=== PATIENT | female | born 1990 | race Caucasian/White ===

== ENCOUNTER 2017-06-07 05:19 | Inpatient (IN) | payer BC ==
[2017-06-07] MEDS ORDERED: OLIVE OIL 118 ML BTL MISC PRN (05:59)
[2017-06-07] MEDS ORDERED: OXYTOCIN/RINGERS LACTATE 1,000 ML IV PRN (05:59)
[2017-06-07] MEDS ORDERED: EPSOM SALT 454 GM TP PRN (05:59)
[2017-06-07] MEDS ORDERED: AMPICILLIN SODIUM 2 GM in NS 100 ML IV ONE (05:59)
[2017-06-07] MEDS ORDERED: LR 1,000 ML IV PRN (05:59)
[2017-06-07] MEDS ORDERED: TERBUTALINE SULFATE 1 MG/ML VIAL IV PRN (05:59)
[2017-06-07 06:02] LABS: % IMMATURE GRANULYOCYTES 1.3 % (0.0-1.1); ABSOLUTE IMMATURE GRANULOCYTES 0.19 10^3/uL (0.00-0.10); ADD DIFF? NO; ADD MORPH? NO; ADD SCAN? NO; ATYPICAL LYMPHOCYTE FLAG 10 (0-99); FRAGMENT RBC FLAG 0 (0-99); HEMATOCRIT 36.1 % (38.0-47.0); HEMOGLOBIN 12.2 g/dL (12.6-16.3); LEFT SHIFT FLG 10 (0-99); LIPEMIA HEMOLYSIS FLAG 90 (0-99); MEAN CELL HEMOGLOBIN 28.9 pg (27.9-34.1); MEAN CELL HEMOGLOBIN CONCENTR. 33.8 g/dL (32.4-36.7); MEAN CELL VOLUME 85.5 fL (81.5-99.8); MEAN PLATELET VOLUME 12.2 fL (8.7-11.7); PLATELET CLUMPS FLAG 0 (0-99); PLATELET COUNT 154 10^3/uL (150-400); RED BLOOD CELL COUNT 4.22 10^6/uL (4.18-5.33); RED CELL DISTRIBUTION WIDTH 13.7 % (11.5-15.2)
[2017-06-07] MEDS ORDERED: BUPIVACAINE 0.25% 30 ML SDV ONE (06:07)
[2017-06-07] MEDS ORDERED: fentaNYL 2MCG/ML/BUP 0.1% RTU 100 ML BAG EP ONE (06:07)
[2017-06-07] MEDS ORDERED: PHENYLEPHRINE HCL 100 MCG/ML SYR ONE (06:07)
[2017-06-07] MEDS ORDERED: fentaNYL 100 MCG/2 ML INJ ONE (06:08)
[2017-06-07] MEDS ORDERED: OLIVE OIL 118 ML BTL ONE (06:13)
[2017-06-07] MEDS ORDERED: AMMONIA AROMATIC 1 EACH AMP IH ONE (06:13)
[2017-06-07] MEDS ORDERED: LIDOCAINE 1% 300 MG/30 ML SDV ONE (06:13)
[2017-06-07] MEDS ORDERED: TERBUTALINE SULFATE 1 MG/ML VIAL ONE (06:14)
[2017-06-07] MEDS ORDERED: OXYTOCIN 10 UNIT/ML VIAL ONE (06:14)
[2017-06-07] MEDS ORDERED: MISOPROSTOL 200 MCG TAB ONE (06:14)
--- NOTE | 2017-06-07 07:07 | OBPROG ---
OBG Labor Progress Note Assessment/Plan: Assessment: 27 y/o A1 female at 40+2 weeks EGA admitted in active labor - hx C/S, desires Plan: 1) Labor - progressing well, now 9cm. Since we clearly will not be able to get a 2nd dose of ABX on board prior to delivery, the decision was made to proceed with AROM. AROM completed with clear fluid noted. 2) Hx prior C/S - all r/b/i/a reviewed, and she has had two successful 's and desires a . 3) GBS positive- Ampicillin given on admission for prophylaxis. 4) Pain well controlled with COTY. 06/07/17 07:03 Subjective: Pt comfortable with COTY. Objective: 06/07/17 05:52 - SVE Dilation (cm): 9 Effacement (%): 90 Station: 0 Winn Current Contraction Pattern: Regular FHR (bpm): 140 FHR Pattern Variability: Moderate FHR Category: 1 Membranes: AROM Amniotic Fluid Color: Clear - Procedures Non-surgical Procedures: Amniotomy ICD10 Worksheet Patient Problems: Problems Problem Status Onset Desires (vaginal after ) trial Acute (spontaneous vaginal delivery) Acute - ICD10 Problem Qualifiers (1) Desires (vaginal after ) trial
--- NOTE | 2017-06-07 07:08 | PREANESOB ---
Obstetric Pre-Anesthesia Info - General Info Proposed Procedure: Labor and delivery (TOLAC). : 5 Para: 3 WBD: 40 - Info Status: Full Term Monitors: External FHR Baseline (bpm): 145 FHR Pattern: Reassuring - Labor Status Cervical Dilation per last OB SVE: 6 Indications for Labor Analgesia: Pain Control, Possible Labor Epidural: Proposed Anesthesia ROS: Epidural x 3 for C Section and x 2. S/P arm surgery and wisdom teeth. Allergies/Adverse Reactions: Allergy/AdvReac Type Severity Reaction Status Date / Time No Known Allergies Allergy Unverified 06/07/17 05:59 Visit Medications: Generic Name Dose Route Start Last Admin Trade Name Freq PRN Reason Stop Dose Admin Ampicillin Sodium 1 gm/ Sodium 100 mls @ 200 mls/hr 06/07/17 10:00 Chloride IV 07/07/17 09:59 Q4H HOME Protocol Lactated Ringer's 1,000 mls @ 0 mls/hr 06/07/17 05:59 Lr IV 12/04/17 05:58 PRN PRN SEE PROTOCOL CONDITIONS Protocol Per Protocol Oxytocin/Lactated Ringer's 1,000 mls @ 150 mls/hr 06/07/17 05:59 Pitocin 20 Units/Lr (Premix) IV PRN PRN Post- bleeding Ibuprofen 600 mg 06/07/17 05:59 Motrin PO 12/04/17 05:58 Q6HRS PRN post , inflammation Magnesium Sulfate 454 gm 06/07/17 05:59 Epsom Salt TP 12/04/17 05:58 Q1H PRN perineal discomfort Ezel Oil 118 ml 06/07/17 05:59 Sweet Oil MISC 12/04/17 05:58 ONCE PRN preneal massage Terbutaline Sulfate 0.25 mg 06/07/17 05:59 Brethine IV 12/04/17 05:58 ONCE PRN Tachysystole Discontinued Medications Generic Name Dose Route Start Last Admin Trade Name Freq PRN Reason Stop Dose Admin Ammonia (Aromatic Spirit) Confirm 06/07/17 06:13 Ammonia Aromatic Administered 06/07/17 06:14 Dose 1 each IH .STK-MED ONE Bupivacaine HCl Confirm 06/07/17 06:07 Sensorcaine 0.25% Sdv Administered 06/07/17 06:08 Dose 30 ml .ROUTE .STK-MED ONE Ephedrine Sulfate Confirm 06/07/17 06:14 Ephedrine Sulfate Administered 06/07/17 06:15 Dose 50 mg .ROUTE .STK-MED ONE Fentanyl Confirm 06/07/17 06:08 Sublimaze Administered 06/07/17 06:09 Dose 100 mcg .ROUTE .STK-MED ONE Fentanyl/Bupivacaine HCl Confirm 06/07/17 06:07 Fentanyl/Bupivacaine/Ns 2 Mcg/Ml 0.1% (Premix Administered 06/07/17 06:08 Dose 100 ml EP .STK-MED ONE Ampicillin Sodium 2 gm/ Sodium 110 mls @ 220 mls/hr 06/07/17 05:59 06/07/17 06:24 Chloride IV 06/07/17 06:28 110 mls ONCE ONE Administration Protocol Lidocaine HCl Confirm 06/07/17 06:13 Lidocaine Hcl 1% Administered 06/07/17 06:14 Dose 300 mg .ROUTE .STK-MED ONE Misoprostol Confirm 06/07/17 06:14 Cytotec Administered 06/07/17 06:15 Dose 800 mcg .ROUTE .STK-MED ONE Ezel Oil Confirm 06/07/17 06:13 Sweet Oil Administered 06/07/17 06:14 Dose 118 ml .ROUTE .STK-MED ONE Oxytocin Confirm 06/07/17 06:14 Pitocin Administered 06/07/17 06:15 Dose 40 unit .ROUTE .STK-MED ONE Phenylephrine HCl Confirm 06/07/17 06:07 Neosynephrine Administered 06/07/17 06:08 Dose 1,000 mcg .ROUTE .STK-MED ONE Terbutaline Sulfate Confirm 06/07/17 06:14 Brethine Administered 06/07/17 06:15 Dose 1 mg .ROUTE .STK-MED ONE - Anesthesia History Response to Local Anesthetics: Normal Anesthesia & Operative History: No Prior Problems Family Anesthesia History: Negative - Social History Substance Use/Abuse: Denies - Focused Exam Blood Pressure: 111/68 Heart Rate: 72 Height/Weight (Nursing): Height 160.02 cm Weight 68.492 kg Physical Exam: Within normal limits. ASA Status: II Labs: 06/07/17 05:52 - Plan Anesthetic Plan: CSE Consent Signed and on Chart: Yes Patient/Guardian Understands and Agrees to Plan: Yes Urgent/Emergent Case: Anes eval completed preop but documented later for safe timely pt care (Written consent after epidural.)
[2017-06-07] MEDS ORDERED: ONDANSETRON 4 MG/2 ML VIAL IVP PRN (07:11)
[2017-06-07] MEDS ORDERED: PHENYLEPHRINE HCL 100 MCG/ML SYR IVP PRN (07:11)
--- NOTE | 2017-06-07 07:11 | POSTANESTH ---
Post Anesthetic Evaluation Cardiovascular Status: Normal, Stable Respiratory Status: Normal, Stable, Similar to Pre-op Cond. Level of Consciousness/Mental Status: Can Participate in Eval, Alert and Oriented Pain Control: Adequate, Prn Tx Ordered Nausea/Vomiting Control: Adequate, Prn Tx Ordered Complications Possibly Related to Anesthesia: None Noted
[2017-06-07] MEDS ORDERED: fentaNYL 2MCG/ML/BUP 0.1% RTU 100 ML EP SCH (07:30)
[2017-06-07] MEDS ORDERED: LR 500 ML IV SCH (07:30)
[2017-06-07] MEDS ORDERED: ACETAMINOPHEN 325 MG TAB PO PRN (08:33)
[2017-06-07] MEDS ORDERED: SIMETHICONE 80 MG TAB CHEW PO PRN (08:33)
[2017-06-07] MEDS ORDERED: HYDROCORTISONE 0.5% CREAM TP PRN (08:33)
--- NOTE | 2017-06-07 08:43 | OBDEL ---
Info Type: Vaginal GBS+: Yes Antibiotic Used for + GBS: Ampicillin Number of Antibiotic Doses Given: 1 Indications for Delivery: Spontaneous Labor Vaginal Delivery - Labor and Delivery Onset of Contractions Date: 06/07/17 Onset of Contractions Time: 02:30 Onset of Contractions Type: Spontaneous Rupture of Membranes Date: 06/07/17 Rupture of Membranes Time: 07:15 Rupture of Membranes Type: Artificial Amniotic Fluid Color: Clear Dilation Complete Date: 06/07/17 Dilation Complete Time: 07:45 Placenta Delivery Date: 06/07/17 Placenta Delivery Time: 08:16 Total Hours of Labor: 5 Non-surgical Procedures: Amniotomy Laceration: 2nd Degree Repair: 3-0, Vicryl Vaginal Sponge Count Correct: Yes Vaginal Needle Count Correct: Yes Vaginal Sweep Performed: Yes EBL: 200 cc Delivery Events: Nuchal Cord, Other (Specify) (true knot in the cord) Delivery Comment: Pt pushed and had an uncomplicated delivery. A loose nuchal cord was noted and reduced during delivery. Baby placed on maternal abdomen, delayed cord clamping x 2 minutes, cord clamped, cord blood obtained, placenta delivered intact. 2nd degree repaired and hemostatic. No complications. Head Waters Data Winn Delivery Date: 06/07/17 Delivery Time: 08:11 SHANICE: 06/05/17 Gestational Age: 40 week(s) and 2 day(s) Sex of : Male Score (1 Min): 8 Score (5 Min): 9 ICD10 Worksheet Patient Problems: Problems Problem Status Onset Desires (vaginal after ) trial Acute (spontaneous vaginal delivery) Acute , delivered Acute - ICD10 Problem Qualifiers (1) Desires (vaginal after ) trial (2) , delivered
[2017-06-07] MEDS ORDERED: TUBERCULIN,PURIF/PROT/DERIV. 1 ML MDV ID ONE (09:19)
[2017-06-07] MEDS: IBUPROFEN 600 MG TAB PO PRN ×3 (09:22→21:00)
--- NOTE | 2017-06-07 09:36 | GHP ---
[f rep st] HISTORY AND PHYSICAL DATE OF ADMISSION: 06/07/2017 CHIEF COMPLAINT: Painful contractions. HISTORY OF PRESENT ILLNESS: The patient is a 27-year-old, 5, para 3, abortus 1, female at 4 0 weeks and 2 days estimated gestational age with history of prior delivery, who desires a vaginal . She has history of 2 prior vaginal births after section that were successfu l in 2013 in 2014 after having a in 2010. The patient reports that she has been having co ntractions every 3 minutes increasing in intensity. She denies any leakage of fluid or vaginal blee ding, and reports good movement. She desires an epidural at this time. PAST MEDICAL HISTORY: None. PAST SURGICAL HISTORY: Avant teeth, delivery. ALLERGIES: No known drug allergies. MEDICATIONS: vitamin. OB PROBLEM LIST: Rh negative, status post RhoGAM March 11, 2017, normal genetic screening, history of prior delivery for nonreassuring heart rate tracing with 2 subsequent VBACs that w ere successful, status post the Tdap shot, and declines the flu shot. LABS: Blood type B negative, antibody screen negative, hematocrit 38, varicella immune, ru rosalina immune, RPR nonreactive, urine culture negative, hepatitis B surface antigen negative, HIV neg ative, gonorrhea and chlamydia negative, GBS positive, 1-hour GTT normal at 88. PHYSICAL EXAMINATION: VITAL SIGNS: Blood pressure 111/68, heart rate 72, respiratory rate 18, temp 36.7 degree Celsius. HEART RATE TRACING: Baseline 140s with moderate variability and accele rations present. TOCOMETER: Contractions every 3 minutes. GENERAL: No acute distress other than during contractions due to pain. CHEST: Clear to auscultation bilaterally. CARDIOVASCULAR: Regular rate and rhythm. ABDOMEN: Gra vid and nontender. PELVIC: Cervical exam 6 cm dilated on admission. ASSESSMENT: The patient is a 27-year-old, 5, para 3, abortus 1, female at 40 weeks and 2 da ys estimated gestational age in active labor with history of prior delivery. PLAN: 1. Admit to labor and delivery. 2. status reassuring. Continue with continuous monitoring. 3. Pain. Desires epidural at this time. Anesthesia has been consulted. 4. GBS positive. Ampicillin has been ordered for prophylaxis. 5. History of prior delivery, desires . The patient has been counseled multiple times in the past regarding all of the risks of a vaginal after delivery to primarily incl ude the 1% risk of uterine rupture, increased risk of bleeding, infection, hysterectomy if emergency were to occur, and she desires to proceed with a vaginal trial of labor. She has had 2 successful vaginal births in the past after , and she is a very good candidate for a trial of labor. /[id number]/MODL
[2017-06-07] MEDS: AMPICILLIN SODIUM 1 GM in NS 100 ML IV SCH (13:11)
[2017-06-07] MEDS: DOCUSATE SODIUM 100 MG CAP PO PRN (19:19)
[2017-06-07] MEDS: HYDROCODONE/APAP 5/325 TAB PO PRN ×2 (19:20→22:58)
[2017-06-07 21:14] VITALS: O2SAT 97
[2017-06-08] MEDS: IBUPROFEN 600 MG TAB PO PRN ×4 (04:31→22:34)
[2017-06-08] MEDS: HYDROCODONE/APAP 5/325 TAB PO PRN ×5 (06:19→22:33)
--- NOTE | 2017-06-08 08:11 | OBPP ---
Progress Note Assessment/Plan: Assessment: 27 y.o. s/p PPD #1. Recovering well. . Plan: Routine care. consult PRN. GBS + and received only 1 dose, so will stay until tomorrow. 06/08/17 08:08 Subjective: Patient reports feeling well with good pain control. infant well. Eating and drinking well without nausea or vomiting. Ambulating without vertigo. Appropriate mood with good support system. Objective: 06/07/17 05:52 Patient ABO/Rh B NEGATIVE 06/07/17 11:05 Temp Pulse Resp BP Pulse Ox 36.8 C 94 18 114/75 97 06/07/17 20:00 06/07/17 20:00 06/07/17 20:00 06/07/17 20:00 06/07/17 20:00 Uterine Position/Fundal Height: Umbilicus -1 Uterine Tone: Firm Physical Exam - Physical Exam General Appearance: WD/WN, alert, no apparent distress EENT: normal ENT inspection Neck: non-tender, full range of motion, normal inspection Respiratory: lungs clear, normal breath sounds Cardiac/Chest: regular rate, rhythm Abdomen: non-tender, soft Extremities: non-tender, normal inspection Back: Normal inspection Skin: normal color, warm/dry Neuro/Psych: alert, normal mood/affect, oriented x 3
[2017-06-08] MEDS: DOCUSATE SODIUM 100 MG CAP PO PRN ×2 (10:20→21:21)
[2017-06-08] MEDS: AMPICILLIN SODIUM 1 GM in NS 100 ML IV SCH (13:54)
[2017-06-08 13:56] VITALS: RESP 16
[2017-06-08 19:33] VITALS: BP 106/71; PULSE 64; TEMP 97.8
[2017-06-09] MEDS: HYDROCODONE/APAP 5/325 TAB PO PRN ×2 (02:06→09:57)
[2017-06-09] MEDS: IBUPROFEN 600 MG TAB PO PRN ×2 (04:33→10:46)
--- NOTE | 2017-06-09 07:27 | OBGCSDC ---
General Delivery Information - General Info : 5 Para: 4 Delivery Physician/CNM: Maria D Suarez Admission Date: 06/07/17 Labs: Patient ABO/Rh B NEGATIVE 06/07/17 11:05 Hct 36.1 % (38.0-47.0) L 06/07/17 05:52 Vaginal - Diagnosis Labor: Spontaneous Rupture of Membranes Type: Artificial Amniotic Fluid Color: Clear Laceration: 2nd Degree Repair: 3-0, Vicryl Delivery Events: Nuchal Cord, Other (Specify) (true knot in the cord) - Operations/Procedures Non-surgical Procedures: Amniotomy L&D Analgesia/Anesthesia Type: Epidural - Hospital Course Intrapartum: Uncomplicated (3rd) : Routine pp care. Rh negative, baby Rh positive. PATIENT REFUSING RHOGAM. DISCUSSED IN DETAIL THE POTENTIAL CATASTROPHIC OUTCOME OF A FUTURE . SHE STATES SHE IS NOT PLANNING FURTHER AND IS GETTING VASECTOMY. REVIEWED HER YOUNG AGE, POTENTIAL FAILURE OF VASECTOMY, POTENTIAL NEW PARTNER IN FUTURE. SHE STATES SHE WILL CONSIDER BUT "DOESN'T WANT TO BE POKED AND PRODDED ANYMORE." - Delivery Non-surgical Procedures: Amniotomy L&D Analgesia/Anesthesia Type: Epidural Data Winn Delivery Date: 06/07/17 Delivery Time: 08:11 SHANICE: 06/05/17 Gestational Age: 40 week(s) and 4 day(s) Sex of : Male Weight (gm): 3362 kg Score (1 Min): 8 Score (5 Min): 9 Discharge Information - Discharge Information Discharge Medications: Hydrocodone, Ibuprofen Condition: Good Instruction/Follow Up: Four Weeks, Six Weeks Discharge Physician/CNM: Princess Etienne
[2017-06-09] MEDS: DOCUSATE SODIUM 100 MG CAP PO PRN (09:57)
== END 2017-06-09 11:25 | disposition home or self-care (01) | DRG 775 ==
LOC: OBSVTOIN 05:19 → FLD 05:19 → FOB 10:34
PROVIDERS: ADMIT Midwife; ATTEND Obstetrics & Gynecology
PROC: 10907ZC Drainage of Amniotic Fluid, Therapeutic from Products of Conception, Via Natural or Artificial Opening (ICD-10-PCS; principal; 2017-06-07)
PROC: 10E0XZZ Delivery of Products of Conception, External Approach (ICD-10-PCS; principal; 2017-06-07)
PROC: 0KQM0ZZ Repair Perineum Muscle, Open Approach (ICD-10-PCS; principal; 2017-06-07)
DX: O48.0 Post-term pregnancy (principal); O70.1 Second degree perineal laceration during delivery; O99.820 Streptococcus B carrier state complicating pregnancy; O69.2XX0 Labor and delivery complicated by other cord entanglement, with compression, not applicable or unspecified; O69.81X0 Labor and delivery complicated by cord around neck, without compression, not applicable or unspecified; O26.893 Other specified pregnancy related conditions, third trimester; O34.219 Maternal care for unspecified type scar from previous cesarean delivery; Z3A.40 40 weeks gestation of pregnancy; Z37.0 Single live birth
CPT/HCPCS: J0290; J2370; J2590; J3010; J3105